=== PATIENT | male | born 1965 | race Two or more races ===

== ENCOUNTER 2022-03-17 13:36 | Inpatient (IN) | payer OTHER ==
[2022-03-17] MEDS: fentaNYL (PF) 50 MCG/ML 2 ML AMP IV ONE ×2 (12:49→15:58)
[2022-03-17] MEDS: LIDOCAINE 1% INJ 10MG/ML (5 ML VIAL-PF) SQ ONE ×2 (12:50→15:06)
[~2022-03-17 13:36] MED LIST: IV FLUID CONTINUATION 1,000 ML IV ONE; MIDAZOLAM 2 MG/2 ML VIAL IV ONE
[2022-03-17] MEDS ORDERED: NITROGLYCERIN SL TABS 0.4 MG TAB SUBLINGUAL PRN ×2 (14:07→18:49)
[2022-03-17] MEDS ORDERED: HEPARIN SODIUM 1,000 UN/ML (10ML VL) IV ONE (14:10)
[2022-03-17] MEDS ORDERED: ASPIRIN 81 MG PO STA (14:10)
[2022-03-17] MEDS ORDERED: HEPARIN SODIUM 1,000 UN/ML (10ML VL) IV PRN (14:10)
--- NOTE | 2022-03-17 14:14 | ED ---
General Adult HPI - General Chief complaint: Recheck/Abnormal Lab/Rx Stated complaint: SOB,Chest Tightness,U.C. sent pt in Time Seen by Provider: 03/17/22 13:49 Source: patient Mode of arrival: ambulatory Limitations: no limitations - History of Present Illness Initial comments: Dictation was produced using [employer] dictation software. please excuse any grammatical, word or spelling errors. Chief Complaint: 56-year-old male presents to the emergency department for abnormal EKG History of Present Illness: Patient is 56-year-old male who presents to the emergency department for abnormal EKG. The last 7 days patient has been having on and off chest tightness. He states that it substernal. Nonradiating to the extremities or the job but is associated with nausea and clamminess. Does feel like he does get some episodes of diaphoresis. He states that his symptoms are more noticeable with any sort of exertion. States that his father had a heart attack at the age of 41. Patient's regular tobacco user. He denies any other c omorbidities. He has no known history of diabetes, high cholesterol. Patient has no known cardiac history. Does not take any daily medications. At the bedside he reports mild although noticeable symptoms. He does report having associated shortness of breath. Patient is a 90-like symptoms. No history of blood clots. The ROS documented in this emergency department record has been reviewed and confirmed by me. Those systems with pertinent positive or negative responses have been documented in the HPI. All other systems are other negative and/or noncontributory. PHYSICAL EXAM: General Impression: Alert and oriented x3, not in acute distress HEENT: Normocephalic atraumatic, extra-ocular movements intact, pupils equal and reactive to light bilaterally, mucous membranes moist. Cardiovascular: Heart regular rate and rhythm Chest: Able to complete full sentences, no retractions, no tachypnea, lungs clear to auscultation bilaterally Abdomen: abdomen soft, non-tender, non-distended, no organomegaly Musculoskeletal: Pulses present and equal in all extremities, no peripheral edema Motor: no focal deficits noted Neurological: CN II-XII grossly intact, no focal motor or sensory deficits noted Skin: Intact with no visualized rashes Psych: Normal affect and mood ED course: 56-year-old male presents emergency department for chest tightness and shortness of breath. Vital signs upon arrival are within acceptable limits. EKG shows ST elevations in the inferior leads with pathologic Q waves in the inferior leads. No obvious reciprocal changes. Patient has suspicious EKG however does not have any classic symptoms. Given patient's clinical presentation is presentation is suspicious for acute myocardial infarction. Code STEMI was paged. Case discussed in detail with Dr. Gilbert who will review the EKG. Chest x-ray x-ray shows no acute processes. Patient be dispositioned to cardiac [employer]. Patient be admitted to [facility]. Patient given aspirin, nitroglycerin and started on heparin. EKG interpretation: Ventricular rate 93, sinus rhythm,. 146, care is 12, QTc 4:30. No IN prolongation, no QTC prolongation, ST elevation in inferior leads. EKG interpreted as ST segment elevation GA - Related Data Home Medications Medication Instructions Recorded Confirmed Aspirin EC [Ecotrin] 325 mg PO ONCE PRN 03/17/22 03/17/22 Doxylam/PE/Dm/Acetaminophen/GG 1 packet PO DAILY PRN 03/17/22 03/17/22 [Joyce-[place] Plus Cold Day-Nt] Phenylephrine HCl [Sudafed PE] 10 mg PO Q4H PRN 03/17/22 03/17/22 Allergies Allergy/AdvReac Type Severity Reaction Status Date / Time No Known Allergies Allergy Verified 03/17/22 14:36 Review of Systems ROS Statement: Those systems with pertinent positive or pertinent negative responses have been documented in the HPI. ROS Other: All systems not noted in ROS Statement are negative. Past Medical History Past Medical History: No Reported History History of Any Multi-Drug Resistant Organisms: None Reported Past Surgical History: No Surgical Hx Reported Past Psychological History: No Psychological Hx Reported Smoking Status: Current every day smoker Past Alcohol Use History: None Reported Past Drug Use History: None Reported General Exam Limitations: no limitations Course Vital Signs 03/17/22 03/17/22 13:49 14:27 Temperature 98.2 F Pulse Rate 80 98 Respiratory 18 16 Rate Blood Pressure 145/95 147/99 O2 Sat by Pulse 98 97 Oximetry Medical Decision Making - Lab Data Result diagrams: 03/17/22 14:24 Lab Results 03/17/22 Range/Units 14:24 Sodium 134 L (137-145) mmol/L Potassium 4.6 (3.5-5.1) mmol/L Chloride 102 (98-107) mmol/L Carbon Dioxide 24 (22-30) mmol/L Anion Gap 8 mmol/L BUN 15 (9-20) mg/dL Creatinine 0.76 (0.66-1.25) mg/dL Est GFR (CKD-EPI)AfAm >90 (>60 ml/min/1.73 sqM) Est GFR (CKD-EPI)NonAf >90 (>60 ml/min/1.73 sqM) Glucose 106 H (74-99) mg/dL Calcium 9.4 (8.4-10.2) mg/dL Total Bilirubin 0.5 (0.2-1.3) mg/dL AST 255 H (17-59) U/L ALT 51 H (4-49) U/L Alkaline Phosphatase 114 (38-126) U/L Total Protein 7.8 (6.3-8.2) g/dL Albumin 4.5 (3.5-5.0) g/dL Critical Care Time Critical Care Time: Yes Total Critical Care Time: 33 Disposition Clinical Impression: STEMI (ST elevation myocardial infarction) Disposition: ADMITTED IP TO THIS HOSP Condition: Critical
--- NOTE | 2022-03-17 14:23 | XR ---
EXAMINATION TYPE: XR chest 1V portable DATE OF EXAM: 03/17/2022 COMPARISON: NONE HISTORY: Chest pain TECHNIQUE: Single view FINDINGS: Heart is normal. Lungs are clear of consolidation. There are no hilar masses. Costophrenic angles are clear. Bony thorax appears intact. IMPRESSION: No cardiopulmonary disease. Normal heart.
[2022-03-17] MEDS ORDERED: NALOXONE 0.4 MG/ML 1 ML VIAL IV PRN (14:26)
[2022-03-17 14:41] LABS: ALT 51 U/L (4-49); AST 255 U/L (17-59); African American GFR (CKD) >90 (>60 ml/min/1.73 sqM); Albumin 4.5 g/dL (3.5-5.0); Alkaline Phosphatase 114 U/L (38-126); Anion Gap 8 mmol/L; Blood Urea Nitrogen 15 mg/dL (9-20); Calcium 9.4 mg/dL (8.4-10.2); Carbon Dioxide 24 mmol/L (22-30); Chloride 102 mmol/L (98-107); Glucose 106 mg/dL (74-99); Non-African American GFR(CKD) >90 (>60 ml/min/1.73 sqM); Potassium 4.6 mmol/L (3.5-5.1); Sodium 134 mmol/L (137-145); Total Bilirubin 0.5 mg/dL (0.2-1.3); Total Protein 7.8 g/dL (6.3-8.2)
--- NOTE | 2022-03-17 14:42 | P.CRDCN ---
History of Present Illness History of present illness: HISTORY OF PRESENTING ILLNESS Patient is a pleasant 56-year-old male with no significant past medical history other than family history of CAD who presents with 7 days of chest pressure and tightness. He states initially felt it was allergies and did not feel that bad and therefore ignored it. He denies anything similar in the past. Does admit to some nausea and mild diaphoresis. It had been more significant a week ago Saturday however denies any extreme severe episode. He has a family history of father with [place] at the age of 41. He does smoke tobacco. No alcohol and no illicit drugs. EKG shows sinus rhythm, Q waves inferiorly with minimal ST elevation in deep T-wave inversions inferiorly, nonspecific T-wave inversion in lead V5, V6. REVIEW OF SYSTEMS At the time of my exam: CONSTITUTIONAL: Denies fever or chills. CARDIOVASCULAR: +chest pain, +shortness of breath, no orthopnea, PND or palpitations. RESPIRATORY: Denies cough. GASTROINTESTINAL: Denies abdominal pain, diarrhea, constipation, +nausea no vomiting. MUSCULOSKELETAL: Denies myalgias. NEUROLOGIC: Denies numbness, tingling or weakness. ENDOCRINE: Denies fatigue, weight change, polydipsia or polyurina. GENITOURINARY: Denies burning, hematuria or urgency with micturation. HEMATOLOGIC: Denies history of anemia or bleeding. PHYSICAL EXAMINATION Vital signs reviewed. CONSTITUTIONAL: No apparent distress. HEENT: Head is normocephalic. Pupils are equal, round. Sclerae anicteric. Mucous membranes of the mouth are moist. No JVD. No carotid bruit. CHEST EXAMINATION: Lungs are clear to auscultation. No chest wall tenderness is noted on palpation or with deep breathing. HEART EXAMINATION: Regular rate and rhythm. S1, S2 heard. No murmurs, gallops or rub. ABDOMEN: Soft, nontender. Positive bowel sounds. EXTREMITIES: 2+ peripheral pulses, no lower extremity edema and no calf tenderness. NEUROLOGIC EXAMINATION: Patient is awake, alert and oriented x3. ASSESSMENT 1. Late presenting inferior ST elevation [place] 2. Family history of COPD 3. Tobacco abuse 4. Shortness breath rule out component of heart failure PLAN Patient with late presenting ME likely 7 days ago however still is having some discomfort. Discussed recommendations for heart catheterization today patient is agreeable. Aspirin, heparin, beta nilo as tolerated. Check 2-D echo. Tobacco cessation. Further recommendations to follow. Past Medical History Past Medical History: No Reported History History of Any Multi-Drug Resistant Organisms: None Reported Past Surgical History: No Surgical Hx Reported Past Psychological History: No Psychological Hx Reported Smoking Status: Current every day smoker Past Alcohol Use History: None Reported Past Drug Use History: None Reported Medications and Allergies Home Medications Medication Instructions Recorded Confirmed Type Aspirin EC [Ecotrin] 325 mg PO ONCE PRN 03/17/22 03/17/22 History Doxylam/PE/Dm/Acetaminophen/GG 1 packet PO DAILY PRN 03/17/22 03/17/22 History [Joyce-[place] Plus Cold Day-Nt] Phenylephrine HCl [Sudafed PE] 10 mg PO Q4H PRN 03/17/22 03/17/22 History Allergies Allergy/AdvReac Type Severity Reaction Status Date / Time No Known Allergies Allergy Verified 03/17/22 14:36 Physical Exam Vitals: Vital Signs Temp Pulse Resp BP Pulse Ox 03/17/22 14:27 98 16 147/99 97 03/17/22 13:49 98.2 F 80 18 145/95 98 Intake and Output 03/16/22 03/17/22 03/17/22 22:59 06:59 14:59 Other: Weight 94.347 kg Results Current Medications Generic Name Dose Route Start Last Admin Trade Name Freq PRN Reason Stop Dose Admin Heparin Sodium (Porcine) 0 unit 03/17/22 14:10 Heparin Sodium 1,000 Un/Ml (10ml Vl) IV PER PROTOCOL PRN Low PTT Protocol Heparin Sodium/Sodium Chloride 250 mls @ 10 mls/hr 03/17/22 14:15 25,000 unit/ Sodium Chloride IV .Q24H ROC Protocol 10.599 UNITS/KG/HR Naloxone HCl 0.2 mg 03/17/22 14:26 Naloxone 0.4 Mg/Ml 1 Ml Vial IV Q2M PRN Opioid Reversal Nitroglycerin 0.4 mg 03/17/22 14:07 Nitroglycerin Sl Tabs 0.4 Mg Tab SUBLINGUAL Q5M PRN Chest Pain Intake and Output 03/16/22 03/17/22 03/17/22 22:59 06:59 14:59 Other: Weight 94.347 kg Patient Weight 03/18/22 06:59 Weight 94.347 kg
[2022-03-17 14:43] LABS: Basophils # (A) 0.1 k/uL (0-0.2); Basophils % (A) 1 %; Eosinophils % (A) 0 %; HCT 46.9 % (39.0-53.0); HGB 15.4 gm/dL (13.0-17.5); Lymphocytes % (A) 20 %; MCH 31.2 pg (25.0-35.0); MCHC 32.8 g/dL (31.0-37.0); Mean Platelet Volume 6.7; Monocytes # (A) 0.6 k/uL (0-1.0); Monocytes % (A) 4 %; Neutrophils # (A) 10.8 k/uL (1.3-7.7); Neutrophils % (A) 73 %; Platelet Count 383 k/uL (150-450); RBC 4.94 m/uL (4.30-5.90); RDW 13.9 % (11.5-15.5); WBC 14.7 k/uL (3.8-10.6)
[2022-03-17] MEDS ORDERED: fentaNYL (PF) 50 MCG/ML 2 ML AMP ONE (14:45)
[2022-03-17] MEDS ORDERED: HEPARIN SODIUM 1,000 UN/ML (10ML VL) ONE ×2 (14:45→16:01)
[2022-03-17] MEDS ORDERED: VERAPAMIL 2.5 MG/ML 2 ML AMP ONE (14:45)
[2022-03-17 14:48] LABS: Prothrombin Time 10.5 sec (9.0-12.0)
[2022-03-17] MEDS ORDERED: MIDAZOLAM 2 MG/2 ML VIAL IV ONE (14:49)
[2022-03-17] MEDS ORDERED: fentaNYL (PF) 50 MCG/ML 2 ML AMP IV ONE (14:49)
[2022-03-17] MEDS ORDERED: LIDOCAINE 1% INJ 10MG/ML (5 ML VIAL-PF) SQ ONE (14:50)
[2022-03-17] MEDS ORDERED: VERAPAMIL SYRINGE (5 MG/10 ML) INTRAARTER ONE (14:52)
[2022-03-17] MEDS: HEPARIN SODIUM 1,000 UN/ML (10ML VL) IV ONE ×6 (15:06→16:16)
[2022-03-17] MEDS ORDERED: TICAGRELOR 90 MG TAB PO ONE (15:09)
[2022-03-17] MEDS ORDERED: TICAGRELOR 90 MG TAB ONE (15:09)
[2022-03-17] MEDS ORDERED: IOPAMIDOL-370 125ML BTL INJ ONE (15:32)
[2022-03-17] MEDS ORDERED: ATROPINE SULFATE 0.1 MG/ML 10ML SYRINGE IV ONE (15:53)
[2022-03-17] MEDS ORDERED: IOPAMIDOL-370 100ML BTL INJ ONE ×2 (16:30)
[2022-03-17 17:10] LABS: Glucose,Whole Blood 93 mg/dL (75-99)
[2022-03-17] MEDS: HEPARIN SOD,PORK IN 0.45% NACL 25,000 UNIT in 0.45% NACL 1 250ML.BAG IV SCH (17:42)
--- NOTE | 2022-03-17 18:18 | P.HPIM ---
History of Present Illness H&P Date: 03/17/22 Chief Complaint: chest pain 56-year-old man with family history of CAD, but no other risk factors, presented with chest pain. Patient says that he's been experiencing chest pain, substernal, crushing, no radiation for the past 7 days. The pain was quite bad today, but was also really bad last Saturday. Today, he also had associated diaphoresis. Therefore, he came to the hospital for further evaluation. Upon arrival was noted the patient had ST elevation SD as well as deep inverted T waves specifically in the inferior leads, and code STEMI was called. Patient was taken to the [facility] where he underwent multiple percutaneous balloon angioplasties followed by insertion of 2 drug-eluting stents to the proximal and mid RCA with good return of flow. Initially attempted right radial access, however, this failed, then transition to right femoral access. Patient was transferred to the ICU and is in good condition. He did currently denies: There is, chills, nausea, vomiting, chest pain, palpitations, syncopal, presyncope, cough, dyspnea, abdominal pain, constipation, diarrhea, dysuria, dyschezia, numbness/weakness. He does report orthopnea. Upon my initial evaluation, patient was afebrile, 98/60, heart rate 59, respiratory rate 29, 95% on room air. CBC demonstrates mild leukocytosis to 14.7. Chemistries are unremarkable. LFTs show AST ALT elevation of 255 to 51. Initial troponin is 46.8. EKG mentioned above. Chest x-ray appears clear. All Systems reviewed and pertinent positives and negatives noted in HPI, all other symptoms are negative Gen: awake, alert HEENT: normocephalic, atraumatic, good hearing acuity, moist mucous membranes Resp: good air exchange, breathing comfortably with no accessory muscle use, clear to auscultation bilaterally CVS: good distal perfusion x 4, regular rate and rhythm, no murmurs GI: soft, NTTP, ND : no SPT, no CVAT, goodrich catheter not present MSK: no pitting edema, no clubbing Neuro: non-focal, moving all extremities Psych: cooperative, euthymic mood Labs and imaging reviewed as above Assessment/plan: STEMI -Admit to ICU, telemetry -Cardiology consult -Status post left heart cath -Aspirin, statin, heparin -Plavix versus Brilinta per cardiology -Lipid panel, A1c, TSH -Echo Patient is full code DVT prophylaxis covered with heparin drip Past Medical History Past Medical History: No Reported History History of Any Multi-Drug Resistant Organisms: None Reported Past Surgical History: No Surgical Hx Reported Smoking Status: Current every day smoker Medications and Allergies Home Medications Medication Instructions Recorded Confirmed Type Aspirin EC [Ecotrin] 325 mg PO ONCE PRN 03/17/22 03/17/22 History Doxylam/PE/Dm/Acetaminophen/GG 1 packet PO DAILY PRN 03/17/22 03/17/22 History [Joyce-[place] Plus Cold Day-Nt] Phenylephrine HCl [Sudafed PE] 10 mg PO Q4H PRN 03/17/22 03/17/22 History Allergies Allergy/AdvReac Type Severity Reaction Status Date / Time No Known Allergies Allergy Verified 03/17/22 14:36 Physical Exam Osteopathic Statement: *. No significant issues noted on an osteopathic structural exam other than those noted in the History and Physical/Consult. Vitals: Vital Signs Temp Pulse Resp BP Pulse Ox 03/17/22 17:40 59 L 29 H 98/60 95 03/17/22 17:30 61 11 L 85/62 94 L 03/17/22 17:20 63 23 85/62 95 03/17/22 17:10 97.9 F 61 20 77/58 94 L 03/17/22 14:27 98 16 147/99 97 03/17/22 13:49 98.2 F 80 18 145/95 98 Intake and Output 03/17/22 03/17/22 03/17/22 06:59 14:59 22:59 Intake Total 550 Balance 550 Intake: IV 550 Other: Weight 94.347 kg 94.347 kg Results CBC & Chem 7: 03/17/22 14:24 03/17/22 14:24 Labs: Abnormal Lab Results - Last 24 Hours (Table) 03/17/22 03/17/22 03/17/22 Range/Units 14:24 14:24 14:24 WBC 14.7 H (3.8-10.6) k/uL Neutrophils # 10.8 H (1.3-7.7) k/uL Sodium 134 L (137-145) mmol/L Glucose 106 H (74-99) mg/dL AST 255 H (17-59) U/L ALT 51 H (4-49) U/L Troponin I 46.800 H* (0.000-0.034) ng/mL
--- NOTE | 2022-03-17 18:48 | P.PRCINT ---
Percutaneous Coronary Int. - Percutaneous Coronary Intervention Percutaneous Coronary Intervention: PROCEDURES PERFORMED: Left heart catheterization, bilateral coronary angiography, PCI proximal to mid RCA with 4.5 x 28mm Xience GREG and 4.0 x 18mm Xience GREG, CSI rotational atherectomy RCA INDICATION: STEMI HPI: Patient is a pleasant 56 year old male with history of tobacco abuse who presented with chest pain and pressure over the last 1 week. He was found to have Q waves inferiorly however still having ongoing chest pain and therefore cath was recommended. CONSENT:I have discussed the risks, benefits and alternative therapies for the above-mentioned procedure and for both sedation/analgesia as well as necessary blood product administration, if indicated, as they pertain to this patient. The patient has indicated understanding and acceptance of the risks and procedures discussed. PROCEDURE: After the risks, benefits and alternatives of the above mentioned procedure explained in detail with the patient, informed consent was obtained. Patient was taken to the catheterization lab and prepped and draped in usual fashion. 1% lidocaine was used to anesthetize the right radial artery. A 6- Spanish sheath was placed in the right radial artery using modified Seldinger technique. There was severe tortuosity of the takeoff of the right subclavian appearing to come from distal to the left subclavian artery consistent with Arteria Lusoria. Inability to engage the ascending aorta and therefore decision was made to switch to femoral approach. 2% Lidocaine was used to anesthetize the right femoral site. A 6Fr sheath was placed in the right femoral artery using modified Seldinger technique. Next left coronary angiography was performed with a 5-Spanish JL 3.5 catheter. Right coronary angiography was performed with a 6Fr AL 0.75 guide. The decision was made to perform PCI of the RCA. Heparin was given for ACT greater than 250. A 0.014 BMW wire was advanced into the distal RCA. Predilation was performed with 2.5 x 12 mm and then 3.5 x 12 mm noncompliant balloon and then 4.0 x 12mm NC balloon. The proximal lesion was still not fully dilated and therefore rotational atherectomy was recommended. The second lesion appeared more consistent with fresh thrombus however the proximal lesion was more fibrotic and calcified and therefore only the proximal lesion was treated with atherectomy. Rotational atherectomy was performed with the CSI device at both low and high settings for a number of passes. Next a 4.0 x 18 mm Xience GREG was placed in the mid RCA with the help of a guideliner. Next a 4.5 x 28mm Xience GREG was placed in the proximal to mid RCA given diffuse disease. The proximal RCA was post dilated with a 4.5NC balloon. The wire was removed and final angiograms were performed. There was a distal RCA lesion near the PDA/PLV bifurcation however this was felt best treated medically. Preintervention there was JOE-1 flow and tandem 90% and 99% RCA stenoses and post intervention there was less than 10% stenosis. A 5-Spanish FR5 catheter was inserted into the left ventricle and pressure measurements were obtained. Right femoral angiogram showed adequate anatomy for closure and therefore a 6Fr Angioseal was placed with hemostasis achieved. The right radial sheath was removed and a TR band was placed with hemostasis achieved. The patient tolerated the procedure well. Patient was transported back to the post catheterization holding area in stable condition. Conscious Sedation: Patient was monitored under the direct supervision of vision of myself for conscious sedation using Versed and fentanyl for a total duration of 104 minutes HEMODYNAMICS: Aorta: 110/88 LV: 108/12, LVEDP 28 SELECTIVE CORONARY ARTERIOGRAPHY: LEFT MAIN: The left main is a large caliber vessel which bifurcates into the LAD and circumflex. There is distal left main 20% stenosis. LEFT ANTERIOR DESCENDING CORONARY ARTERY: LAD is a large caliber vessel which wraps around to the apex. There is an ostial LAD flush 100% occlusion with inability to visualize the ostium of the LAD. The mid LAD is filled by left to left collaterals from the circumflex. LEFT CIRCUMFLEX CORONARY ARTERY: Left circumflex is a moderate caliber vessel with mild luminal irregularities and gives off 2 OM branches. RIGHT CORONARY ARTERY: The right coronary artery is a large caliber vessel which gives off a PDA and PLV branch and is the dominant vessel. The proximal RCA has a diffuse 70-90% stenosis and a mid 99% stenosis with what appears to be fresh thrombus in the mid lesion. There is a 60-70% distal RCA stenosis just before the PDA and PLV bifurcation. There is JOE 1 flow. After PCI there were faint right to left collaterals to the LAD septals. FINAL IMPRESSION: 1. CAD as described above including 90% proximal RCA, 99% mid RCA, distal 60- 70% RCA, 100% ostial LAD stenosis with left to left and right to left collaterals. 2. S/p successful PCI proximal to mid RCA with 4.5 x 28mm Xience GREG and 4.0 x 18mm Xience GREG, CSI rotational atherectomy RCA 3. Elevated left sided filling pressures 4. 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 Aggressive risk factor modification per most recent ACC/AHA guidelines. 2. Continue dual antiplatelets with aspirin and Brillinta for 12 months. 3. Treat distal RCA 60-70% stenosis medically however if has continued angina, may consider functional assessment. If patient has cardiomyopathy would consider viability study to assess LAD viability and may consider attempted staged RETAIL CLIENT SOLUTIONS ANALYST PCI. 4. Recommend future intervention/ catheterizations from a left radial approach given right subclavian takeoff consistent with arteria lusoria.
[2022-03-17] MEDS ORDERED: MAG HYDROX/AL HYDROX/SIMETH 30 ML CUP PO PRN (18:49)
[2022-03-17] MEDS ORDERED: ZOLPIDEM 5 MG TAB PO PRN (18:49)
[2022-03-17] MEDS ORDERED: RX INFO: IV CONTRAST WAS GIVEN 1 EACH MISC MISCELLANE PRN (18:49)
[2022-03-17] MEDS ORDERED: ATROPINE SULFATE 0.1 MG/ML 10ML SYRINGE IV PRN (18:49)
[2022-03-17] MEDS ORDERED: SODIUM CHLORIDE 0.9% 1,000 ML in EMPTY BAG 1 BAG IV SCH (19:00)
[2022-03-17] MEDS: TICAGRELOR 90 MG TAB PO SCH (20:19)
[2022-03-17] MEDS: ATORVASTATIN 80 MG TAB PO SCH (20:19)
[2022-03-17] MEDS: METOPROLOL TARTRATE 12.5 MG TAB PO SCH (21:38)
[2022-03-17] MEDS: FUROSEMIDE 10 MG/ML 4 ML VIAL IV SCH (22:01)
[2022-03-18 05:44] LABS: Basophils % (A) 0 %; Eosinophils # (A) 0.1 k/uL (0-0.7); Eosinophils % (A) 0 %; HCT 42.8 % (39.0-53.0); HGB 14.1 gm/dL (13.0-17.5); Lymphocytes % (A) 23 %; MCH 31.2 pg (25.0-35.0); MCHC 32.9 g/dL (31.0-37.0); MCV 94.8 fL (80.0-100.0); Monocytes # (A) 0.8 k/uL (0-1.0); Monocytes % (A) 6 %; Neutrophils # (A) 8.8 k/uL (1.3-7.7); Neutrophils % (A) 68 %; Platelet Count 312 k/uL (150-450); RBC 4.51 m/uL (4.30-5.90); RDW 13.3 % (11.5-15.5); WBC 12.9 k/uL (3.8-10.6)
[2022-03-18 05:56] LABS: African American GFR (CKD) >90 (>60 ml/min/1.73 sqM); Anion Gap 4 mmol/L; Blood Urea Nitrogen 18 mg/dL (9-20); Carbon Dioxide 25 mmol/L (22-30); Chloride 105 mmol/L (98-107); Glucose 126 mg/dL (74-99); Magnesium 1.9 mg/dL (1.6-2.3); Non-African American GFR(CKD) >90 (>60 ml/min/1.73 sqM); Potassium 4.3 mmol/L (3.5-5.1); Sodium 134 mmol/L (137-145)
--- NOTE | 2022-03-18 08:22 | P.PN ---
Subjective HISTORY OF PRESENTING ILLNESS Patient is a pleasant 56-year-old male with no significant past medical history other than family history of CAD who presents with 7 days of chest pressure and tightness. He states initially felt it was allergies and did not feel that bad and therefore ignored it. He denies anything similar in the past. Does admit to some nausea and mild diaphoresis. It had been more significant a week ago Saturday however denies any extreme severe episode. He has a family history of father with [place] at the age of 41. He does smoke tobacco. No alcohol and no illicit drugs. EKG shows sinus rhythm, Q waves inferiorly with minimal ST elevation in deep T-wave inversions inferiorly, nonspecific T-wave inversion in lead V5, V6. 03/18 Patient seen and examined. He underwent left heart catheterization yesterday with somewhat complex PCI and atherectomy of the RCA and also found to have WET AND DRY SUGAR BIN OPERATOR of the proximal LAD. He was noted to have extremely elevated LVEDP. He is noted to have mildly low blood pressures and after heart catheterization blood pressures in the 80s over 50s. He did have some "tightening" in the chest which appears more related to heart failure and therefore was given Lasix with improvement in his symptoms. He denies any chest pain or pressure however does still feel short of breath and like he cannot catch his breath. PHYSICAL EXAMINATION Vital signs reviewed. CONSTITUTIONAL: No apparent distress. HEENT: Head is normocephalic. Pupils are equal, round. Sclerae anicteric. Mucous membranes of the mouth are moist. No JVD. No carotid bruit. CHEST EXAMINATION: Lungs are clear to auscultation. No chest wall tenderness is noted on palpation or with deep breathing. HEART EXAMINATION: Regular rate and rhythm. S1, S2 heard. No murmurs, gallops or rub. ABDOMEN: Soft, nontender. Positive bowel sounds. EXTREMITIES: 2+ peripheral pulses, no lower extremity edema and no calf tenderness. NEUROLOGIC EXAMINATION: Patient is awake, alert and oriented x3. ASSESSMENT 1. Late presenting inferior ST elevation [place], status post PCI RCA 03/17/2022 2. Family history of CAD 3. Tobacco abuse 4. Acute on chronic systolic heart failure 5. Borderline blood pressure 6. CAD with inferior STEMI as well as CT of LAD with left to left and [id number] collaterals PLAN Check 2-D echo Patient with episode of chest pressure which appears more related to heart failure symptoms. EKG overnight similar to after catheterization with patient still having persistent ST elevations, completing his infarct. Attempt heart failure regimen as able however borderline blood pressures. Continue with diuretics. Continue dual antiplatelets for 12 months. May consider WET AND DRY SUGAR BIN OPERATOR of LAD if viable tissue however appears to have a flush occlusion and would be somewhat more difficult procedure. Objective - Vital Signs Vital signs: Vital Signs Temp 98.0 F 03/18/22 04:00 Pulse 63 03/18/22 07:00 Resp 12 03/18/22 07:00 BP 87/59 03/18/22 07:00 Pulse Ox 96 03/18/22 06:00 FiO2 Intake & Output 03/17/22 03/18/22 03/18/22 18:59 06:59 18:59 Intake Total 550 660 Output Total 575 1600 0 Balance -25 -940 0 Weight 94.347 kg 99.6 kg Intake: IV 550 120 Sodium Chloride 0.9% 1, 120 000 ml In Empty Bag 1 bag @ 40 mls/hr IV .Q24H [facility] Rx#:[id number] Oral 540 Output: Urine 575 1600 0 Other: Voiding Method Urinal - Labs CBC & Chem 7: 03/18/22 05:24 03/18/22 05:24 Labs: Abnormal Lab Results - Last 24 Hours (Table) 03/17/22 03/17/22 03/17/22 Range/Units 14:24 14:24 14:24 WBC 14.7 H (3.8-10.6) k/uL Neutrophils # 10.8 H (1.3-7.7) k/uL Sodium 134 L (137-145) mmol/L Glucose 106 H (74-99) mg/dL AST 255 H (17-59) U/L ALT 51 H (4-49) U/L Troponin I 46.800 H* (0.000-0.034) ng/mL 03/17/22 03/18/22 03/18/22 Range/Units 18:29 00:23 05:24 WBC 12.9 H (3.8-10.6) k/uL Neutrophils # 8.8 H (1.3-7.7) k/uL Sodium (137-145) mmol/L Glucose (74-99) mg/dL AST (17-59) U/L ALT (4-49) U/L Troponin I 140.000 H* 154.000 H* (0.000-0.034) ng/mL 03/18/22 03/18/22 Range/Units 05:24 05:24 WBC (3.8-10.6) k/uL Neutrophils # (1.3-7.7) k/uL Sodium 134 L (137-145) mmol/L Glucose 126 H (74-99) mg/dL AST (17-59) U/L ALT (4-49) U/L Troponin I 126.000 H* (0.000-0.034) ng/mL
[2022-03-18 09:15] LABS: Chol/HDL Ratio 8.85 Ratio; LDL Cholesterol,Calculated 180.2 mg/dL (0.0-131.0)
[2022-03-18] MEDS: ASPIRIN 81 MG PO SCH (10:40)
[2022-03-18] MEDS: FUROSEMIDE 10 MG/ML 4 ML VIAL IV SCH (10:40)
[2022-03-18] MEDS: METOPROLOL TARTRATE 12.5 MG TAB PO SCH ×2 (10:40→20:35)
[2022-03-18] MEDS: TICAGRELOR 90 MG TAB PO SCH ×2 (10:40→20:35)
--- NOTE | 2022-03-18 13:39 | P.PN ---
Subjective Progress Note Date: 03/18/22 No new complaints. Doing well following procedure yesterday. Gen: awake, alert HEENT: normocephalic, atraumatic, good hearing acuity, moist mucous membranes Resp: good air exchange, breathing comfortably with no accessory muscle use, clear to auscultation bilaterally CVS: good distal perfusion x 4, regular rate and rhythm, no murmurs GI: soft, NTTP, ND : no SPT, no CVAT, goodrich catheter not present MSK: no pitting edema, no clubbing Neuro: non-focal, moving all extremities Psych: cooperative, euthymic mood Labs and imaging reviewed as above Assessment/plan: STEMI -Admit to ICU, telemetry -Cardiology consult -Status post left heart cath -Aspirin, statin, heparin, brillinta -Lipid panel, A1c, TSH -Echo pending Patient is full code DVT prophylaxis covered with heparin drip Objective - Vital Signs Vital signs: Vital Signs Temp 98.4 F 03/18/22 12:00 Pulse 62 03/18/22 11:00 Resp 11 L 03/18/22 11:00 BP 98/75 03/18/22 12:00 Pulse Ox 95 03/18/22 12:00 FiO2 Intake & Output 03/17/22 03/18/22 03/18/22 18:59 06:59 18:59 Intake Total 550 660 Output Total 575 1600 800 Balance -25 -940 -800 Weight 94.347 kg 99.6 kg Intake: IV 550 120 Sodium Chloride 0.9% 1, 120 000 ml In Empty Bag 1 bag @ 40 mls/hr IV .Q24H [facility] Rx#:[id number] Oral 540 Output: Urine 575 1600 800 Other: Voiding Method Urinal # Voids 1 - Labs CBC & Chem 7: 03/18/22 05:24 03/18/22 05:24 Labs: Abnormal Lab Results - Last 24 Hours (Table) 03/17/22 03/17/22 03/17/22 Range/Units 14:24 14:24 14:24 WBC 14.7 H (3.8-10.6) k/uL Neutrophils # 10.8 H (1.3-7.7) k/uL Sodium 134 L (137-145) mmol/L Glucose 106 H (74-99) mg/dL Hemoglobin A1c (0.0-6.0) % AST 255 H (17-59) U/L ALT 51 H (4-49) U/L Troponin I 46.800 H* (0.000-0.034) ng/mL Triglycerides (0.00-149.00) mg/dL Cholesterol (0.00-200.00) mg/dL LDL Cholesterol, Calc (0.0-131.0) mg/dL HDL Cholesterol (40.00-60.00) mg/dL 03/17/22 03/18/22 03/18/22 Range/Units 18:29 00:23 05:24 WBC (3.8-10.6) k/uL Neutrophils # (1.3-7.7) k/uL Sodium (137-145) mmol/L Glucose (74-99) mg/dL Hemoglobin A1c 6.2 H (0.0-6.0) % AST (17-59) U/L ALT (4-49) U/L Troponin I 140.000 H* 154.000 H* (0.000-0.034) ng/mL Triglycerides (0.00-149.00) mg/dL Cholesterol (0.00-200.00) mg/dL LDL Cholesterol, Calc (0.0-131.0) mg/dL HDL Cholesterol (40.00-60.00) mg/dL 03/18/22 03/18/22 03/18/22 Range/Units 05:24 05:24 05:24 WBC 12.9 H (3.8-10.6) k/uL Neutrophils # 8.8 H (1.3-7.7) k/uL Sodium 134 L (137-145) mmol/L Glucose 126 H (74-99) mg/dL Hemoglobin A1c (0.0-6.0) % AST (17-59) U/L ALT (4-49) U/L Troponin I 126.000 H* (0.000-0.034) ng/mL Triglycerides 159.00 H (0.00-149.00) mg/dL Cholesterol 239.00 H (0.00-200.00) mg/dL LDL Cholesterol, Calc 180.2 H (0.0-131.0) mg/dL HDL Cholesterol 27.00 L (40.00-60.00) mg/dL
[2022-03-18] MEDS: HEPARIN SOD,PORK IN 0.45% NACL 25,000 UNIT in 0.45% NACL 1 250ML.BAG IV SCH (16:29)
[2022-03-18 16:46] VITALS: BMI 29.7
[2022-03-18] MEDS: ATORVASTATIN 80 MG TAB PO SCH (20:35)
[2022-03-19] MEDS: SPIRONOLACTONE 25 MG TAB PO SCH (07:59)
[2022-03-19] MEDS: METOPROLOL TARTRATE 12.5 MG TAB PO SCH ×2 (07:59→20:15)
[2022-03-19] MEDS: TICAGRELOR 90 MG TAB PO SCH ×2 (07:59→20:15)
[2022-03-19] MEDS: ASPIRIN 81 MG PO SCH (07:59)
[2022-03-19 09:49] LABS: African American GFR (CKD) >90 (>60 ml/min/1.73 sqM); Albumin 3.7 g/dL (3.5-5.0); Anion Gap 5 mmol/L; Blood Urea Nitrogen 22 mg/dL (9-20); Calcium 8.7 mg/dL (8.4-10.2); Carbon Dioxide 26 mmol/L (22-30); Chloride 104 mmol/L (98-107); Glucose 98 mg/dL (74-99); Non-African American GFR(CKD) >90 (>60 ml/min/1.73 sqM); Phosphorus 3.1 mg/dL (2.5-4.5); Potassium 4.1 mmol/L (3.5-5.1); Sodium 135 mmol/L (137-145)
--- NOTE | 2022-03-19 15:24 | P.PN ---
Subjective Progress Note Date: 03/19/22 No new complaints. Doing well with no arrhythmia. Getting echo at time of my evaluation, results pending. Gen: awake, alert HEENT: normocephalic, atraumatic, good hearing acuity, moist mucous membranes Resp: good air exchange, breathing comfortably with no accessory muscle use, clear to auscultation bilaterally CVS: good distal perfusion x 4, regular rate and rhythm, no murmurs GI: soft, NTTP, ND : no SPT, no CVAT, goodrich catheter not present MSK: no pitting edema, no clubbing Neuro: non-focal, moving all extremities Psych: cooperative, euthymic mood Labs and imaging reviewed as above Assessment/plan: STEMI -Admit to ICU, telemetry -Cardiology consult -Status post left heart cath -Aspirin, statin, heparin, brillinta -Lipid panel, A1c, TSH -Echo pending Patient is full code DVT prophylaxis covered with heparin drip Objective - Vital Signs Vital signs: Vital Signs Temp 98.1 F 03/19/22 08:00 Pulse 73 03/19/22 08:00 Resp 16 03/19/22 07:00 BP 110/69 03/19/22 08:00 Pulse Ox 91 L 03/19/22 08:00 FiO2 Intake & Output 03/18/22 03/19/22 03/19/22 18:59 06:59 18:59 Intake Total 360 Output Total 1000 475 Balance -1000 -475 360 Weight 99.6 kg 98.1 kg Intake: Oral 360 Output: Urine 1000 475 Other: # Voids 1 - Labs CBC & Chem 7: 03/18/22 05:24 03/19/22 09:22 Labs: Abnormal Lab Results - Last 24 Hours (Table) 03/19/22 Range/Units 09:22 Sodium 135 L (137-145) mmol/L BUN 22 H (9-20) mg/dL
[2022-03-19] MEDS: ATORVASTATIN 80 MG TAB PO SCH (20:15)
[2022-03-20] MEDS: METOPROLOL TARTRATE 12.5 MG TAB PO SCH ×2 (07:54→20:58)
[2022-03-20] MEDS: TICAGRELOR 90 MG TAB PO SCH ×2 (07:54→20:58)
[2022-03-20] MEDS: SPIRONOLACTONE 25 MG TAB PO SCH (07:54)
[2022-03-20] MEDS: ASPIRIN 81 MG PO SCH (07:54)
--- NOTE | 2022-03-20 13:16 | CA ---
Transthoracic Echo Report Name: Marshall Sal Age: 56 Gender: M : 1965 Exam Date: 03/19/2022 14:15 Exam Location: [facility] Ht (in): 72 Wt (lb): 216 Ordering Physician: Tim Gilbert DO ([email or web address]) Attending/Referring Phys: Credit Office Manager Rhiannon Purdy, LAURA Procedure CPT: Indications: re: LV function, inferior STEMI Cardiac Hx: Technical Quality: Good Contrast 1: Total Dose (mL): Contrast 2: Total Dose (mL): MEASUREMENTS (Male / Female) Normal Values 2D ECHO LV Diastolic Diameter PLAX 5.0 cm 4.2 - 5.9 / 3.9 - 5.3 cm LV Systolic Diameter PLAX 3.4 cm IVS Diastolic Thickness 1.3 cm 0.6 - 1.0 / 0.6 - 0.9 cm LVPW Diastolic Thickness 1.5 cm 0.6 - 1.0 / 0.6 - 0.9 cm LV Relative Wall Thickness 0.6 RV Internal Dim ED PLAX 3.2 cm LA Systolic Diameter LX 4.1 cm 3.0 - 4.0 / 2.7 - 3.8 cm LA Volume 67.9 cm??? 18 - 58 / 22 - 52 cm??? M-MODE Aortic Root Diameter MM 3.1 cm LA Systolic Diameter MM 4.9 cm LA Ao Ratio MM 1.6 MV E Point Septal Separation 0.4 cm AV Cusp Separation MM 2.3 cm DOPPLER MV Area PHT 5.2 cm??? Mitral E Point Velocity 70.2 cm/s Mitral A Point Velocity 74.8 cm/s Mitral E to A Ratio 0.9 MV Deceleration Time 145.7 ms MV E' Velocity 6.0 cm/s Mitral E to MV E' Ratio 11.7 TR Peak Velocity 226.7 cm/s TR Peak Gradient 20.6 mmHg Right Ventricular Systolic Press 25.6 mmHg FINDINGS Left Ventricle Left ventricular ejection fraction is estimated at 40-45%. Inferior hypokinesis. Right Ventricle Normal right ventricular size and function. Right ventricular systolic pressure within normal limits. Right Atrium Normal right atrial size. Left Atrium Mildly increased left atrial diameter. Mildly increased left atrial volume. Mitral Valve Mild mitral regurgitation. Aortic Valve Aortic valve not well visualized. Aortic valve sclerosis. Tricuspid Valve Structurally normal tricuspid valve. Mild tricuspid regurgitation. Pulmonic Valve Structurally normal pulmonic valve. Pericardium Echo free space anterior to the right ventricle likely represents a fat pad. Aorta Normal size aortic root and proximal ascending aorta. CONCLUSIONS Left ventricular ejection fraction 40-45% Inferior hypokinesis Mild mitral regurgitation Mild tricuspid regurgitation Previewed by: Dr. Tim Gilbert DO (Electronically Signed) Final Date: 20 Mar 2022 13:15
[2022-03-20] MEDS: LOSARTAN 25 MG TAB PO SCH (13:50)
--- NOTE | 2022-03-20 16:29 | PN ---
PROGRESS NOTE This gentleman underwent stenting of RCA by Dr. Gilbert yesterday. He came somewhat late after his AZ, had an inferior ST-elevation AZ, late presentation, doing fairly well. No chest pain or shortness of breath. Will check echo findings. Results are not available. Vitals are stable. No JVD. S1, S2 heard normally. No significant murmurs. Lungs are clear. Abdomen and lower extremity exam unchanged. Cath site is clean and dry. Plan is to add a small dose of losartan 12.5 mg daily, increase activity and possible discharge soon. MMODL / IJN: [id number] /
--- NOTE | 2022-03-20 20:36 | P.PN ---
Subjective Progress Note Date: 03/20/22 (delayed charting seen at 1400) Principal diagnosis: chest pain Patient is a 56-year-old man with family history of CAD, but no other risk factors, presented with chest pain with stemi. He had a PCI to the RCA and was placed on dual antiplatelet therapy. He was followed by cardiology. Echo did show hypokanesis and EF 40-45%. Patient seen and examined at bedside. Has seen Dr. Erazo in the past and would like to follow wtih her again. No current chest pain, SOB, nausea. Did not sleep well last night. General: non toxic, no distress, appears at stated age Derm: warm, dry Head: atraumatic, normocephalic, symmetric Eyes: EOMI, no lid lag, anicteric sclera Mouth: no lip lesion, mucus membranes moist Cardiovascular: S1S2 reg, no murmur, positive posterior tibial pulse bilateral, Lungs: CTA bilateral, no rhonchi, no rales , no accessory muscle use Abdominal: soft, nontender to palpation, no guarding, no appreciable organomegaly Ext: no gross muscle atrophy, no edema, no contractures Neuro: CN II-XI grossly intact, no focal neuro deficits Psych: Alert, oriented, appropriate affect Assessment/plan: STEMI s/p PCI to the RCA CAD Ischemic cardiomyopathy with EF 40-45% Dyslipidemia - cardio recs - dual antiplatelet, statin, ACEI, BB - likely home in AM - need outpatient PCP and cardio follow-up Tobacco abuse - cessation Objective - Vital Signs Vital signs: Vital Signs Temp 98.2 F 03/20/22 16:00 Pulse 62 03/20/22 16:00 Resp 16 03/20/22 16:00 BP 109/64 03/20/22 16:00 Pulse Ox 94 L 03/20/22 16:00 FiO2 Intake & Output 03/20/22 03/20/22 03/21/22 06:59 18:59 06:59 Output Total 1200 400 Balance -1200 -400 Weight 98.4 kg Output: Urine 1200 400 Other: Voiding Method Urinal Urinal # Voids 1 2 - Labs CBC & Chem 7: 03/18/22 05:24 03/19/22 09:22
[2022-03-20] MEDS: ATORVASTATIN 80 MG TAB PO SCH (20:58)
[2022-03-21] MEDS: METOPROLOL TARTRATE 12.5 MG TAB PO SCH (09:16)
[2022-03-21] MEDS: LOSARTAN 25 MG TAB PO SCH (09:16)
[2022-03-21] MEDS: ASPIRIN 81 MG PO SCH (09:17)
[2022-03-21] MEDS: TICAGRELOR 90 MG TAB PO SCH (09:17)
[2022-03-21] MEDS: SPIRONOLACTONE 25 MG TAB PO SCH (09:17)
[2022-03-21 09:30] VITALS: BP 120/73; PULSE 67; TEMP 98
[2022-03-21 09:35] VITALS: RESP 14
--- NOTE | 2022-03-21 12:08 | PN ---
PROGRESS NOTE Mr. Sal is in sinus rhythm, doing well. Ejection fraction is 40% to 45% with inferior wall hypokinesia. He is hemodynamically stable, doing well. Plan is to continue current medications, increase activity, and he can be discharged and he will see Dr. Gilbert in one week. MMYEN / IJN: [id number] /
--- NOTE | 2022-03-21 17:08 | P.DS ---
Providers Date of admission: 03/17/22 14:27 Expected date of discharge: 03/21/22 Attending physician: Vicky Morrison MD Consults: 03/17/22 14:07 Consult Physician Stat Consulting Provider: Tim Gilbert Consult Reason/Comments: STEMI ACTIVATION COMPLETE Do you want consulting provider notified?: Already Contacted 03/17/22 18:49 Consult Physician Routine Consulting Provider: [facility] Consult Reason/Comments: Post Interventional patient Do you want consulting provider notified?: Already Contacted Primary care physician: Esperanza Erazo Hospital Course: Discharge Diagnosis: STEMI s/p PCI to the RCA CAD Ischemic cardiomyopathy with EF 40-45% Dyslipidemia Tobacco abuse Hospital Course: Patient is a 56-year-old man with family history of CAD, but no other risk factors, presented with chest pain with stemi. He had a PCI to the RCA and was placed on dual antiplatelet therapy. He was followed by cardiology. Echo did show hypokanesis and EF 40-45%. He was optimized on a regimen of aspirin, brillenta, beta nilo, and AJAY inhibitor. He was also found have elevated lipids and was started on a statin. He was doing well and was determined stable for dsicharge home. Follow-up: re-establisk care with Dr. Erazo. Take medications as prescribed. off work until see by . He will monitor BP as low-normal on discharge. Stop smoking Patient seen and examined at bedside. Doing well, no chest pain, SOB, has been up and walking without dizziness. Vital signs reviewed and stable. General: non toxic, no distress, appears at stated age Derm: warm, dry Head: atraumatic, normocephalic, symmetric Eyes: EOMI, no lid lag, anicteric sclera Mouth: no lip lesion, mucus membranes moist Cardiovascular: S1S2 reg, no murmur, positive posterior tibial pulse bilateral, Lungs: CTA bilateral, no rhonchi, no rales , no accessory muscle use Abdominal: soft, nontender to palpation, no guarding, no appreciable organomegaly Ext: no gross muscle atrophy, no edema, no contractures Neuro: CN II-XI grossly intact, no focal neuro deficits Psych: Alert, oriented, appropriate affect A total of 33 minutes of time were spent preparing this complex discharge summary . Patient Condition at Discharge: Stable Plan - Discharge Summary Discharge Rx Participant: No New Discharge Prescriptions: New Spironolactone [Aldactone] 25 mg PO DAILY #30 tab Losartan [Cozaar] 12.5 mg PO DAILY #30 tab Metoprolol Tartrate [Lopressor] 12.5 mg PO BID #60 tab Aspirin 81 mg PO DAILY #30 tab Ticagrelor [Brilinta] 90 mg PO BID #60 capsule Atorvastatin [Lipitor] 80 mg PO HS #30 tab Continue Doxylam/PE/Dm/Acetaminophen/GG [Joyce-Ostrander Plus Cold Day-Nt] 1 packet PO DAILY PRN PRN Reason: Cold Symptoms Discontinued Phenylephrine HCl [Sudafed PE] 10 mg PO Q4H PRN PRN Reason: Congestion Aspirin EC [Ecotrin] 325 mg PO ONCE PRN PRN Reason: Chest Pain Discharge Medication List Doxylam/PE/Dm/Acetaminophen/GG [Joyce-Ostrander Plus Cold Day-Nt] 1 packet PO DAILY PRN 03/17/22 [History] Aspirin 81 mg PO DAILY #30 tab 03/21/22 [Rx] Atorvastatin [Lipitor] 80 mg PO HS #30 tab 03/21/22 [Rx] Losartan [Cozaar] 12.5 mg PO DAILY #30 tab 03/21/22 [Rx] Metoprolol Tartrate [Lopressor] 12.5 mg PO BID #60 tab 03/21/22 [Rx] Spironolactone [Aldactone] 25 mg PO DAILY #30 tab 03/21/22 [Rx] Ticagrelor [Brilinta] 90 mg PO BID #60 capsule 03/21/22 [Rx] Follow up Appointment(s)/Referral(s): Tim Gilbert DO [STAFF PHYSICIAN] - 03/28/22 1:15 pm (Dr Gilbert in 1 week. Please call office with a contact phone number and a primary care physician.) Esperanza Erazo MD [Primary Care Provider] - 03/27/22 12:00 pm (Dr Erazo 1 Week. Arrive 15 early to complete paperwork. Before visit, Please call insurance company to change Primary Care Physician (PCP) or Call Dr Erazo office for instructions on how to change the PCP.) Patient Instructions/Handouts: Metoprolol (By mouth), Aspirin (By mouth), Nitroglycerin, Rapid Release (By mouth), Atorvastatin (By mouth), Ticagrelor (By mouth) Activity/Diet/Wound Care/Special Instructions: Activity: as tolerated Diet: heart health diet Obtain a blood pressure cuff and monitor blood pressures daily. Make a list and bring it to your follow-up appointment with the cardiology team. Stop smoking Take all medications as prescribed Thank you for trusting us with your care. We wish you well on your journey to better health. Discharge/Stand Alone Forms: Work/School Release / Restrict Discharge Disposition: HOME SELF-CARE
== END 2022-03-21 13:10 | disposition home or self-care (01) | DRG 246 ==
LOC: EC 13:36 → 2SICU 14:27
PROVIDERS: ADMIT Internal Medicine; ATTEND Internal Medicine
DX: I21.19 ST elevation (STEMI) myocardial infarction involving other coronary artery of inferior wall (principal); I50.23 Acute on chronic systolic (congestive) heart failure; I25.5 Ischemic cardiomyopathy; I25.10 Atherosclerotic heart disease of native coronary artery without angina pectoris; Z20.822 Contact with and (suspected) exposure to COVID-19; Z28.310 Unvaccinated for COVID-19; E78.5 Hyperlipidemia, unspecified; D72.829 Elevated white blood cell count, unspecified; F17.200 Nicotine dependence, unspecified, uncomplicated; Z71.6 Tobacco abuse counseling; Z82.49 Family history of ischemic heart disease and other diseases of the circulatory system; Z82.5 Family history of asthma and other chronic lower respiratory diseases
CPT/HCPCS: 36415; 71045; 80048; 80053; 80061; 80069; 83036; 83735; 84443; 84484; 85025; 85610; 85730; 87635; 93005; 93306; 93458; 96374; 99291

== ENCOUNTER → 2022-08-20 | Outpatient (CLI) | payer OTHER ==
--- NOTE | 2022-08-20 10:34 | US ---
EXAMINATION TYPE: US kidneys/renal and bladder DATE OF EXAM: 08/20/2022 COMPARISON: NONE CLINICAL HISTORY: 57-year-old male R31.9 hematuria. TECHNIQUE: Multiple sonographic images of the kidneys and bladder are obtained. FINDINGS: EXAM MEASUREMENTS: Right Kidney: 12.6 x 5.1 x 6.3 cm Left Kidney: 13.6 x 5.9 x 6.1 cm Right Kidney: No hydronephrosis or masses seen Left Kidney: No hydronephrosis or masses seen Bladder: Partially distended bladder shows no gross abnormality. Bilateral Jets seen: only left jet seen in 3 minutes of scan time. Incidental note is made of prominent prostate impressing onto the base of the bladder. IMPRESSION: 1. No hydronephrosis. 2. Prostatomegaly encroaching at the base of the bladder. Correlate for possible BPH with PSA values and patient's symptoms.
== END | disposition home or self-care (01) ==
LOC: RADUSWWP 08:07
PROVIDERS: ATTEND Internal Medicine
DX: N40.0 Benign prostatic hyperplasia without lower urinary tract symptoms (principal)
CPT/HCPCS: 76770

== ENCOUNTER → 2025-02-25 | Outpatient (CLI) | payer BC ==
--- NOTE | 2025-02-25 11:07 | XR ---
EXAMINATION TYPE: XR lumbosacral spine min 4V DATE OF EXAM: 02/25/2025 CLINICAL INDICATION: Male, 59 years old with history of [id number] LBP, pain TECHNIQUE: Frontal, lateral, and oblique images of the lumbar spine are obtained. COMPARISON: None FINDINGS: There are 5 lumbar type vertebral bodies identified. The lumbar spine shows satisfactory alignment without evidence of acute fracture or dislocation. Vertebral body heights and disk space he ights are within normal limits. The oblique images appear within normal limits. Mild overlying jonathan rial vascular calcification is present. IMPRESSION: No acute findings are seen. [facility], , 02/25/2025 11:05 AM
== END | disposition home or self-care (01) ==
LOC: RADXRYALE 10:20
PROVIDERS: ATTEND Internal Medicine
DX: M54.51 Vertebrogenic low back pain (principal)
CPT/HCPCS: 72110